=== PATIENT | female | born 1960 | race Caucasian/White ===

== ENCOUNTER 2023-09-30 04:57 | Inpatient (IN) | payer OTHER, SELFPAY ==
[2023-09-27 07:38] VITALS: BMI 28.6
[2023-09-27 08:17] LABS: % Basophils 0.5 % (0-2); % Eosinophils 1.9 % (0-6); % Immature Granulocytes 0.3 % (0-0.5); % Lymphocytes 14.1 % (20.5-51.1); % Monocytes 4.6 % (1.7-9.3); % Neutrophils 78.6 % (42.2-75.2); Absolute Eosinophils 0.2 10^3/uL (0-0.7); Absolute Lymphocytes 1.1 10^3/uL (1.2-3.4); Absolute Monocytes 0.4 10^3/uL (0.1-0.6); Absolute Neutrophils 6.3 10^3/uL (1.4-6.5); Hematocrit 40.9 % (37.0-47.0); Hemoglobin 13.4 g/dL (12.0-16.0); Mean Corp Hgb Conc. 32.8 g/dL (33.0-37.0); Mean Corpuscular Hgb 29.3 pg (27.0-31.0); Mean Corpuscular Volume 89.5 fL (81.0-99.0); Mean Platelet Volume 10.3 fL (7.4-10.4); Nucleated Red Blood Cells % 0 %; Platelet Count 292 10^3/uL (130-400); Red Blood Cell Count 4.57 10^6/uL (4.20-5.40); Red Cell Dist. Width 14.4 % (11.5-14.5)
[2023-09-27 08:25] LABS: APTT 27.4 Sec (23.4-35.0); INR 1.05; PT 13.5 Sec (11.4-14.6)
[2023-09-27 08:42] LABS: Urine Albumin Negative (Neg - Trace); Urine Bilirubin Negative (Negative); Urine Character Clear (Clear); Urine Color Yellow; Urine Glucose Negative (Negative); Urine Ketone Negative (Negative); Urine Leukocyte Negative (Negative); Urine Nitrite Negative (Negative); Urine Occult Blood Negative (Negative); Urine Urobilinogen Negative (Neg - 1+)
[2023-09-27 09:06] LABS: ALT (SGPT) 18 U/L (0-35); AST (SGOT) 24 U/L (14-36); Albumin 4.2 g/dl (3.5-5.0); Alkaline Phosphatase 56 U/L (38-126); Blood Urea Nitrogen 16 mg/dl (7-17); Calcium 9.9 mg/dl (8.4-10.2); Carbon Dioxide 25 mmol/L (22-30); Chloride 105 mmol/L (98-107); Direct Bilirubin 0.3 mg/dl (0.0-0.4); Estimated Creatinine Clearance 70 ml/min; Glucose 134 mg/dl (70-99); Potassium 4.5 mmol/L (3.5-5.1); Sodium 142 mmol/L (135-145); Total Bilirubin 0.6 mg/dl (0.2-1.3); eGFR > 60.00
[2023-09-27 09:22] LABS: Glycohemoglobin (HgbA1c) 8.8 % (4.0-5.6)
--- NOTE | 2023-09-27 09:43 | CM ---
Chart reviewed. Met with the patient in PAT. Reviewed preoperative and postoperative instructions with restrictions. Gave patient 2 soaps along with showering instructions. Patient is agreeable to a home visit by CT Transitional Care RN.
Patient is independent of ADLS, lives with her in a [facility], 1st floor set up, 2 BETY, 0 DME. Plan is for the patient to return home with CT Transitional Care RN
[2023-09-30] VITALS (17 sets, daily range): BP systolic 91–115; BP diastolic 54–76; PULSE 2–88; BMI 28.4
[2023-09-30] MEDS: BACTROBAN 2% OINTMENT 1 APPLIC NASAL ×2 (05:20→19:56)
[2023-09-30] MEDS: LOPRESSOR 25 MG PO (05:20)
[2023-09-30] MEDS: PROTONIX 40 MG PO (05:20)
[2023-09-30] MEDS: MAGNESIUM OXIDE 500 MG PO (05:21)
--- NOTE | 2023-09-30 05:41 | PTCARENOTE ---
Pt arrived as same day admission; x2 home showers confirmed; pt prepped and clipped; [facility] wipes provide with new gown and sheets; all admission questions answered; home medications reviewed; preop checklist review, all jewelry removed ; preop
medications taken; ABO drawn and sent; awaiting OR.
--- NOTE | 2023-09-30 08:15 | W.CVOR.SURPR ---
CVOR Surgeon Immed Pre Op
-
I have examined this patient prior to performance of the scheduled procedure.
The patient's condition is unchanged from the time of the dictated/written History and
Physical and the patient is able to undergo the scheduled procedure.
HEMPHILL-LAD
[2023-09-30 08:29] LABS: Urine Albumin Negative (Neg - Trace); Urine Bilirubin Negative (Negative); Urine Character Clear (Clear); Urine Color Yellow; Urine Glucose Negative (Negative); Urine Ketone Negative (Negative); Urine Leukocyte Negative (Negative); Urine Nitrite Negative (Negative); Urine Occult Blood Negative (Negative); Urine Specific Gravity 1.015 (<1.030); Urine Urobilinogen Negative (Neg - 1+)
[2023-09-30 08:30] LABS: ACT+ - POC 104 Seconds (82-134)
[2023-09-30 08:35] LABS: B.E. - POC -2.9 mmol/L; Glucose - POC 135 mg/dl (65-99); HCO3 - POC 22 mmol/L (21-29); Hematocrit - POC 35 % PCV (37-47); Hemodilution- POC No; Hemoglobin Calculated - POC 11.9; Ionized Calcium - POC 1.19 mmol/L (1.12-1.27); O2 Saturation %Calculated-POC 99.6 5 (92-96); PCO2 - POC 39 mmHg (35-45); PO2 - POC 187 mmHg (80-100); Sodium - POC 144 mmol/L (135-145); pH - POC 7.37 (7.35-7.45)
--- NOTE | 2023-09-30 09:20 | PN.DE.MGMTRT ---
Insulin Management
- -
09/30/2023: Diabetes Management Consult:
63 year old female admitted for elective cardiac surgery. Pt recently had an acute STEMI, underwent PCI to the RCA, was found to have residual CAD involving the proximal LAD and underwent a nuclear study that showed anterior or lateral and apical
hypokinesis and evidence of ischemia during stress.
PMH includes: HTN, HLD, CAD involving the proximal LAD, Ischemic cardiomyopathy with LVEF 40 to 45% along with regional wall motion abnormality in the anterior apical region on nuclear stress test, Hx of CVA, H/o Right breast cancer, s/p partial
mastectomy with radiation, Prior small bowel surgery and T2DM.
A1C 8.8%, Cr 0.6, eGFR>60. Was taking Levemir 34 units daily, glipizide 2.5mg daily and Tradjenta 5mg daily.
Patient is not available for interview at this time. She is off the floor to the OR for procedure. Was NPO since MN. No glucose obtained this morning.
Pt will be managed on glycemic protocol x48hrs post cardiac surgery.
At time of transition off insulin drip, resume pt's OP regimen: Levemir 34 units daily, Glipizide at increased dose of 5mg BID and Januvia 100mg daily (Tradjenta NF here) in addition to Jardiance or Farxiga 10 mg daily whichever one is covered by
insurance.
Will follow up on Tuesday.
Diabetes History
- -
Type of Diabetes: 2 requiring insulin
Pre-Admission Diabetes Regimen
Lab Results
Hemoglobin A1c 8.8 % (4.0-5.6) H 09/27/23 07:49
Insulin Pump Settings
IP Diabetes Regimen
Patient Education
[2023-09-30 10:19] LABS: ACT+ - POC 574 Seconds (82-134)
--- NOTE | 2023-09-30 11:13 | CM ---
Chart reviewed. Patient is in the OR today. Patient is independent of ADLS, lives with her in a 1.5 [facility] 1st floor set up, 2 BETY, 0 DME. Plan is for the patient to return home with CT Transitional RN. CMt to follow
[2023-09-30 11:25] LABS: ACT+ - POC 93 Seconds (82-134)
[2023-09-30 11:29] LABS: Glucose - POC 178 mg/dl (65-99); HCO3 - POC 25 mmol/L (21-29); Hematocrit - POC 34 % PCV (37-47); Hemodilution- POC Yes; Hemoglobin Calculated - POC 11.5; Ionized Calcium - POC 1.06 mmol/L (1.12-1.27); O2 Saturation %Calculated-POC 99.9 5 (92-96); PCO2 - POC 41 mmHg (35-45); PO2 - POC 270 mmHg (80-100); Potassium - POC 3.7 mmol/L (3.6-5.0); Sodium - POC 145 mmol/L (135-145)
--- NOTE | 2023-09-30 11:51 | W.PN.CT.SURG ---
CT Surgery Operative Note
-
CARDIAC SURGERY OPERATIVE REPORT
Preoperative Diagnosis: Residual coronary Artery Disease with proximal LAD involvement and status post STEMI with PCI to the RCA
Postoperative Diagnosis: Same
Procedure(s) Performed:
1. Robotic assisted MIDCAB (single-vessel bypass HEMPHILL in situ to LAD)
2. Robotic assisted harvest of internal mammary artery with anterolateral mini thoracotomy for CABG
3. Transesophageal echocardiography
4. Transonic Flowprobe assessment of HEMPHILL graft
5. Intercostal nerve block, interspaces 3, 4, 5, 6 with 5 cc of bupivacaine mixture in each space
Date of Surgery: 09/30/23
Comorbidities:
1. Coronary artery disease involving the proximal LAD
2. Recent acute STEMI status post PCI with multiple stents to the RCA
3. Ischemic cardiomyopathy with LVEF 40 to 45% along with regional wall motion abnormality in the anterior apical region on nuclear stress test
4. Hypertension
5. Hyperlipidemia
6. Previous stroke, unknown etiology
7. Diabetes type 2
8. Right breast cancer, status post partial mastectomy with radiation
9. Prior small bowel surgery
Attending Surgeon: Edin Card MD, MS
Assistants: Erica Srivastava PA-C (present and necessary to dental hygiene administrative assistant, exchanging robotic instruments, retraction, suction, exposure, suture management, and wound closure under my direction)
Anesthesiology: Danial Murillo MD and Veronica Raya CRNA
Scrub and Circulating RNs: Stacy Valerio RN, Sy Lackey and Milan Quinones RN
Industrial Truck Mechanic: Abdirizak Moon CCP
Anesthesia: GETA
EBL: per perfusion records
Products: None
Indication(s) for Procedures: This is a 63-year-old female who recently had an acute STEMI and underwent PCI intervention to the RCA. She was found to have residual coronary artery disease involving the proximal LAD and underwent a nuclear study
demonstrating anterior or lateral and apical hypokinesis and evidence of ischemia during stress. She is status post greater than 30 days from her stenting procedure. The STS risk was discussed with the patient in the office and the shared decision
making was to pursue a single-vessel bypass using his mammary artery to his LAD via a mini invasive approach.
Conduit(s) Quality/Internal Diameter:
HEMPHILL -excellent, uniform in size, good quality, flow probe analysis, mean flow of 20 cc/min, PI of 2.6-2.9
Target(s) Quality/Internal Diameter:
LAD -good quality, could not accommodate a 2.0 mm shunt. Was able to easily accommodate a 1.5 mm shunt and was a tortuous vessel overall
Findings: Her left ventricular ejection fraction preoperatively was 50 to 55%, following surgery her EF remained the same with no new regional wall motion abnormalities. The HEMPHILL was harvested in a skeletonized fashion. The mammary graft was
verified with flow probe to have excellent signals. There was a mean flow of approximately 20 cc a minute and a pulsatility index of less than 3.0
Description of Procedure: The patient was taken to the operating room. Their identity and procedure to be performed were verified and they were positioned supine on the operating table. Induction via general anesthesia with endotracheal intubation
was performed and central venous access and arterial monitoring were inserted. A preoperative transesophageal echocardiogram was performed to assess cardiac function and valvular function. The patient was then prepped and draped from chin to feet in
a sterile fashion and positioned with left side bumped up and left arm down. A preoperative time-out was performed with all members of the team present. A Veress needle was used to enter the chest after stopping ventilation with the left lung
verified by anesthesia. We started with slow pressure insufflation which they tolerated. An 8 mm port was inserted in the fourth intercostal space laterally and a camera was inserted verifying no intrathoracic iatrogenic injuries. 2 additional
ports(8 mm and 8mm) were placed along the midaxillary line on either side of the camera port. Single 12 mm air seal port was used for the internet marketing assistant to pass instruments and sutures. The robotic platform was then docked and targeted towards the
mammary. An intercostal nerve block was then performed here along the anterior chest wall. The mammary was harvested in a skeletonized fashion. A posterior pericardiotomy was created to facilitate drainage. Once sufficient length was obtained, an
anterior pericardiotomy was created to identify the distal target. This was marked with a marker robotically. The cardiac stabilizer arm was then inserted through one of the robotic ports under direct vision and aimed up towards the anterior chest
wall. Full heparinization was given (a total of 30,000 units). 3 Hem-o-gonzales clips were used to occlude and divide the mammary distally at its bifurcation, and a single 5-0 prolene suture was used to secure the mammary to the pericardium overlying
the LAD target. The robot platform was then undocked and the patient and a left anterior thoracotomy was created over the target vessel avoiding her breast tissue and tunneling upwards towards the fourth intercostal space. Upon entering the
thoracic cavity the mammary and LAD were visible. A soft tissue and thoracotomy retractor was placed to facilitate exposure and a pericardial well was created. The ACT was confirmed to be over 400.
The cardiac suction stabilizer was used to isolate the LAD target. The distal end of the mammary was prepped and beveled to size. We verified orientation and length of the CHEPE and found brisk flow. A coronary arteriotomy was created and enlarged
with coronary dale scissors. A 1.5mm shunt was inserted to facilitate exposure and continued tanana coronary perfusion. An fpei-as-kwdd anastomosis was created with a 7-0 prolene leaving the Hem-o-gonzales clip at the end of the left internal mammary
artery. The bulldog on the mammary was removed which demonstrated excellent graft flow. The shunt was then remove and demonstrated excellent tanana flow. Appropriate hemostasis was confirmed. The mammary graft was inspected and was free from
kinking or twisting and flowprobe evaluation demonstrated good flow and PI. A test dose of protamine was administered and the patient was monitored for any adverse reaction before resuming protamine. A 19F raven drain into the pericardium and
through the posterior pericardiotomy into the left chest. Fascia was approximated with #1 vicryl suture. Local analgesia was administered to the surgical sites. The subcutaneous, dermis and epidermis were closed in layers in a running fashion. The
skin wound was cleansed and dressed.
All instrument, sponge, and needle counts were confirmed to be correct x 2 at the end of the operation. The patient was transferred to the cardiac intensive care unit extubated in critical but stable condition.
I, Dr. Edin Card, was present, scrubbed for, and performed all critical elements of this procedure.
Edin Card MD, MS
Cardiothoracic Surgeon
[facility]
This operative dictation was created using the [email or web address] dictation system. Please excuse any grammatical, typographical, or 'sound alike' errors
[2023-09-30 12:32] LABS: Glucose - Point of Care 184 mg/dl (70-99)
--- NOTE | 2023-09-30 12:39 | W.PN.UPDATE ---
Update Note
Progress Note Update
63-year-old female who recently had an acute STEMI and underwent PCI intervention to the RCA. She was found to have residual coronary artery disease involving the proximal LAD and underwent a nuclear study demonstrating anterior or lateral and
apical hypokinesis and evidence of ischemia during stress. She is status post greater than 30 days from her stenting procedure. The STS risk was discussed with the patient in the office and the shared decision making was to pursue a single-vessel
bypass using his mammary artery to his LAD via a mini invasive approach.
Crystalloid:� 2000
U.O.:� 400
Blood:� none
Wires:� none
Inotropes:� None
Pressors:� none
Sedatives:� none
�
NEURO: Pupils +2mm B/L
RESP: Bipap 14/5, RR12; Lungs clear B/L.Mediastinal/pleural (47cc on arrival) chest tubes to -20cm suction. Sanguineous drainage
CV: RRR +S1, S2, no S3, no�rub, no murmur. Dermabond to left chest; [facility]
ABD: round, soft, no BS
EXT: no edema, +2/4 DP pulses B/L, no femoral bruit left radial arterial line
: Astudillo with clear yellow urine
�
A/P: POD #0 s/p Robotic assisted MIDCAB (single-vessel bypass HEMPHILL in situ to LAD)
ISAÍAS: EF�50-55% with no new regional wall motion abnormalities
- will start ASA once awake to tolerate PO
- Maintain MAPs >65; currently on NTG
- cont pain protocol
- monitor CT and urine Output
- f/u CXR; t/c lasix
- EKG sent to cards
- Cards consulted
�
# acute surgical blood loss anemia-expected
- trend CBC
�
# T2DM (A1C 8.8)
- insulin infusion x 48h
- resume orals meds after
- DM management SET UP MOLD TECHNICIAN consulted
�
# Hyperlipidemia
- resume�statin once tolerating PO
--- NOTE | 2023-09-30 12:40 | PTCARENOTE ---
Assumed care of patient from CVOR. SR on monitor , RT IJ cordis with [place] and CVP monitoring, Lt radial A line transduced. Lines leveled, recalibrated and flushed. Placed on BIPAP upon arrival by NUCLEAR TEST TECHNICIAN/RT. Pulse ox 98% 10 L 15/4. Chest tubes x
1 to -20 cm suction. No air leak or crepitus noted. Abdomen soft , hypoactive bowel sounds. Astudillo draining straw urine. DP pulses and radial pulses palpable. Surgical sites c,d,i. Insulin and nitro infusing on handoff, see flow sheet for
totals / titration.
--- NOTE | 2023-09-30 12:41 | CON.INTV ---
Consultation
Consultation Request
Date/Time Consultation Requested: 09-30-23
Date/Time Consultation Performed: 09-30-23
Requesting Provider: Dr Card
Performing Provider: Dr Moyer
Reason for Consultation: s/p CABG MV
Medical History
-
Chief Complaint: s/p CABG MC
History of Present Illness:
Mrs Shannon Palma is a 63/W adm for scheduled CABG by Dr Card. Seen by Dr Card at office for residual proximal LAD disease. Prepared for surgery.
Received CABGx1. Seen at CVICU, on BPAP (extubated at OR), tolerating BPAP well
Sedated, able to weakly open eyes
Past Medical History
Past Medical History: Other (see A&P for PMH/PSH)
Social History
Tobacco: Former Smoker
Alcohol: None
Drug: None
Personal:
Living: With Family
Employment: Employed
Family History
Family History: CAD (M: stents. Brother at 65 with AMI) and Diabetes (son)
Allergies / Home Medications
Allergies
Allergy/AdvReac Type Severity Reaction Status Date / Time
oxycodone Allergy 'wacked me Verified 09/26/23 09:05
out, had
to go to
ER'
Penicillins Allergy reaction Verified 09/26/23 09:05
as child
Sulfa (Sulfonamide Allergy delirious Verified 09/26/23 09:05
Antibiotics)
Home Medications
�Medication �Instructions �Recorded �Confirmed �Last Taken �Type
Curcumin Turmeric 1 tab PO DAILY 09/26/23 09/30/23 09/15/23 08:00 History
ascorbic acid (vitamin C) 500 mg 500 mg PO DAILY 09/26/23 09/30/23 09/15/23 08:00 History
tablet (Vitamin C)
aspirin 81 mg capsule 81 mg PO DAILY 09/26/23 09/30/23 09/29/23 08:00 History
atorvastatin 40 mg tablet 40 mg PO DAILY 09/26/23 09/30/23 09/29/23 08:00 History
cholecalciferol (vitamin D3) 25 25 mcg PO DAILY 09/26/23 09/30/23 09/15/23 08:00 History
mcg (1,000 unit) tablet (Vitamin
D3)
glipizide 2.5 mg tablet 2.5 mg PO DAILY 09/26/23 09/30/23 09/29/23 08:00 History
insulin detemir U-100 100 unit/mL 34 unit SC DAILY 09/26/23 09/30/23 09/29/23 08:00 History
(3 mL) subcutaneous pen (Levemir
FlexPen)
linagliptin 5 mg tablet (Tradjenta) 5 mg PO DAILY 09/26/23 09/30/23 09/29/23 08:00 History
losartan 50 mg tablet 50 mg PO DAILY 09/26/23 09/30/23 09/27/23 08:00 History
metoprolol tartrate 50 mg tablet 50 mg PO BID 09/26/23 09/30/23 09/29/23 08:00 History
multivitamin 1 tab PO DAILY 09/26/23 09/30/23 09/15/23 08:00 History
ticagrelor 90 mg tablet (Brilinta) 90 mg PO BID 09/26/23 09/30/23 09/23/23 08:00 History
Review of Systems
-
Unable to Obtain full review of systems at this time due to: Patient Intubation
Vitals / Labs / Diagnostic Testing
Vital Signs
Temp Pulse Resp BP Pulse Ox
96.1 F L 88 15 104/64 97
09/30/23 12:33 09/30/23 12:33 09/30/23 12:33 09/30/23 12:33 09/30/23 12:33
Microbiology
09/27/23 07:49 Nose MRSA Screen - Final
No Methicillin Resistant Staphylococcus aureus isolated.
Diagnostic Testing:
Physical Exam
-
HEENT: Normocephalic and Other (BPAP FFM)
Cardiovascular: Regular Rhythm and Peripheral Edema (n)
Respiratory: Rales (trace) and Non-Labored Respirations
GI: Soft and Non Distended
Neurology: Other (sedated)
Skin: Warm
General: Respiratory Distress (n)
Assessment
-
Assessment:
Mrs Shannon Palma is a 63/W adm for scheduled CABG by Dr Card. Seen by Dr Card at office for residual proximal LAD disease. Prepared for surgery. Received CABGx1. Seen at CVICU
Impression:
S/p single-vessel CABG
Conditions IMAGING SPECIALIST:
CAD, s/p AMI, RCA stent July 2023 at [facility]
CVA 2019, R sided numbness but no weakness
T2DM
HTN
HLD
R breast cancer s/p lumpectomy and XRT
Umbilical hernia
Former smoker
Plan:
Extubated at OR
Currently on BPAP 14/5 cwp with O2 at 15L
BPAP and FiO2 will be weaned
Postop CXR: underpenetrated, pulm vasc congestion, interim extubation, RIJ cordis
Agree with diuretic dose as d/w CTSx SANDBLASTING SUPERVISOR
Pressors/antihypertensive/inotropes/diuretics will be provided as needed
Monitor chest tube output
Monitor hemoglobin
Monitor platelet count and coags
Transfuse blood product if needed
CT surgery following chest tube
Monitor blood sugar
Insulin drip per protocol
Aspiration precautions
Early nutrition
Early mobilization
Critical care time: 35 min
D/w CTSx RN
[2023-09-30 12:45] LABS: Hematocrit 35.6 % (37.0-47.0); Hemoglobin 11.4 g/dL (12.0-16.0); Mixed Venous O2 Saturation 84.5 %; Platelet Count 261 10^3/uL (130-400)
[2023-09-30 12:46] LABS: B.E. -1.8 mmol/L; HCO3 24.3 mmol/L (21-28); Ionized Calcium 1.12 mMOL/L (1.15-1.33); O2 Saturation % 98.6 % (94-98); PCO2 46 mmHg (32-35); PO2 109 mmHg (83-108); Potassium 3.9 mMOL/L (3.5-5.1); Sodium 139 mMOL/L (136-145); pH 7.33 (7.35-7.45)
[2023-09-30 12:53] LABS: APTT 27.3 Sec (23.4-35.0); INR 1.25; PT 15.5 Sec (11.4-14.6)
[2023-09-30] MEDS: KCL 50 IV ×2 (12:56→16:19)
[2023-09-30] MEDS: CALCIUM CHLORIDE 10% SYRINGE 50 ML IV (12:56)
[2023-09-30] MEDS: NSS 500 IV (12:56)
[2023-09-30] MEDS: CALCIUM CHLORIDE 10% SYRINGE 50 MG IV (12:56)
[2023-09-30 12:57] LABS: Blood Urea Nitrogen 13 mg/dl (7-17); Estimated Creatinine Clearance 93 ml/min; Glucose 179 mg/dl (70-99); Magnesium 1.8 mg/dl (1.6-2.3)
[2023-09-30] MEDS: NOVOLOG FLEXPEN SC ×2 (12:57→16:24)
[2023-09-30] MEDS: LASIX 20 MG IV (12:57)
[2023-09-30] MEDS: ANCEF 10 IV (12:57)
[2023-09-30] MEDS: ANCEF IV (12:57)
--- NOTE | 2023-09-30 13:16 | W.PN.CD ---
Addendum entered and electronically signed by Tommy Dye MD 10/01/23 08:14:
I saw and examined the patient.
The DIVISION CHAIR's note was reviewed and I agree with the note.
Comment: Late entry seen and examined September 29.
Cont routine post op care
Original Note:
Today's Communication / Plan
-
routine post op care.
Impression / Plan
-
Mrs. Palma is a 63 yo female with CAD s/p STEMI with PCI RCA 07/2023, residual LAD disease, HTN, HLD, DM, CVA 2018 and prior breast cancer, who presents for MIDCAB by Dr. Card today. Her hand edger is Dr. Mckeon.
CAD - residual proximal LAD s/p STEMI 07/2023 with PCI to RCA.
- s/p robotic assisted MIDCAB HEMPHILL to LAD by Dr. Card today.
- awake/alert on BiPAP post op.
- left chest tube draining.
- NTG drip with stable BP.
HTN - stable BP on NTG drip now.
- monitor.
HLD - Lipitor 40mg qpm.
DM - insulin dependent.
- DM DIVISION CHAIR following.
CVA - 2018.
- stable.
Breast cancer - prior, right sided.
- s/p lumpectomy and XRT.
Physical Exam
Vital Signs/Labs
Vital Signs
Temp Pulse Resp BP Pulse Ox
96.2 F L 80 11 94/56 97
09/30/23 13:05 09/30/23 13:05 09/30/23 13:05 09/30/23 13:05 09/30/23 13:07
09/29/23 09/30/23 10/01/23
06:59 06:59 06:59
Actual Weight 72.6 kg
09/30/23 12:19
PT 15.5 Sec (11.4-14.6) H 09/30/23 12:19
INR 1.25 09/30/23 12:19
APTT 27.3 Sec (23.4-35.0) 09/30/23 12:19
Magnesium 1.8 mg/dl (1.6-2.3) 09/30/23 12:19
Physical Exam
Constitutional: No acute distress
EENT: Anicteric and Moist mucous membranes
Cardiovascular: Rhythm & rate is regular and Pedal edema is absent
Respiratory: Respiratory effort normal
GI: Soft and Non tender
Neuro/Psych: Other (sleepy, arouses to name on Bipap post op)
Other: Skin (warm, dry)
Data Reviewed
-
Date of Service: September 30, 2023
Medical Decision Making: Reviewed Test Results
EKG: Tracing Personally Visualized and interpreted
Labs: Labs Reviewed by me
Old Records: Reviewed
[2023-09-30] MEDS: DILAUDID 0.5 MG IV (13:30)
[2023-09-30 13:35] LABS: Glucose - Point of Care 209 mg/dl (70-99)
[2023-09-30] MEDS: MAGNESIUM SULFATE 50 IV (14:08)
--- NOTE | 2023-09-30 14:09 | PTCARENOTE ---
Pt waking up more frequently for longer periods of time. Repeat ABG obtained and sent . Will assess once resulted .
[2023-09-30 14:10] LABS: B.E. -3.8 mmol/L; HCO3 23.1 mmol/L (21-28); O2 Saturation % 98.8 % (94-98); PCO2 48 mmHg (32-35); PO2 158 mmHg (83-108); pH 7.29 (7.35-7.45)
[2023-09-30] MEDS: NITROGLYCERIN PREMIX 250 IV (14:10)
[2023-09-30] MEDS: CARDENE 200 IV ×3 (14:23→19:55)
[2023-09-30 14:52] LABS: Glucose - Point of Care 206 mg/dl (70-99)
--- NOTE | 2023-09-30 14:52 | PTCARENOTE ---
Respiratory therapists called for BIPAP changes
[2023-09-30] MEDS: TORADOL 15 MG IV ×2 (15:17→22:05)
[2023-09-30 15:25] LABS: B.E. -4.4 mmol/L; HCO3 22.6 mmol/L (21-28); O2 Saturation % 98.5 % (94-98); PCO2 48 mmHg (32-35); PO2 123 mmHg (83-108); pH 7.28 (7.35-7.45)
--- NOTE | 2023-09-30 15:25 | PTCARENOTE ---
Bicarb administered per order, Pt awaking with stimulation, attempting to remove BIPAP as 'she cannot breath' Pt removed zandra hugger blanket. C/o pain in chest. Toradol recently administered. Will recheck ABG as per order and follow.
[2023-09-30] MEDS: SODIUM BICARBONATE 50 MEQ IV (15:30)
[2023-09-30] MEDS: PACERONE PO (15:36)
[2023-09-30] MEDS: NEURONTIN PO (15:36)
[2023-09-30 16:01] LABS: Glucose - Point of Care 184 mg/dl (70-99)
[2023-09-30 16:11] LABS: Hematocrit 37.9 % (37.0-47.0); Hemoglobin 12.2 g/dL (12.0-16.0); Platelet Count 260 10^3/uL (130-400)
[2023-09-30 16:12] LABS: B.E. 0.8 mmol/L; HCO3 26.6 mmol/L (21-28); Ionized Calcium 1.26 mMOL/L (1.15-1.33); O2 Saturation % 98.3 % (94-98); PCO2 46 mmHg (32-35); PO2 122 mmHg (83-108); Potassium 3.1 mMOL/L (3.5-5.1); Sodium 141 mMOL/L (136-145); pH 7.37 (7.35-7.45)
[2023-09-30 17:16] LABS: Glucose - Point of Care 147 mg/dl (70-99)
[2023-09-30 17:17] LABS: B.E. -1.3 mmol/L; HCO3 23.7 mmol/L (21-28); Ionized Calcium 1.25 mMOL/L (1.15-1.33); O2 Saturation % 98.4 % (94-98); PCO2 40 mmHg (32-35); PO2 122 mmHg (83-108); Potassium 3.8 mMOL/L (3.5-5.1); Sodium 141 mMOL/L (136-145); pH 7.38 (7.35-7.45)
--- NOTE | 2023-09-30 17:18 | PTCARENOTE ---
Pt awoke spontaneously. Thrashing in bed, grabbing at mask. RN attempting to draw ABG at time. Pt became nauseated , gagging, BIPAP removed, oxygen 6 L applied, zofran administered. Will follow ABG. Mask left off at this time.
[2023-09-30] MEDS: ZOFRAN 4 MG IV (17:30)
[2023-09-30] MEDS: LOW STRENGTH ASPIRIN 81 MG PO (17:36)
[2023-09-30] MEDS: ANCEF 5 IV (17:36)
[2023-09-30 18:11] LABS: Glucose - Point of Care 122 mg/dl (70-99)
[2023-09-30] MEDS: OFIRMEV 100 IV (18:20)
--- NOTE | 2023-09-30 18:21 | PTCARENOTE ---
Pt given sip of water with PO Aspirin. Initially tolerated, then approx 45 minutes after, pt attempting to readjust in bed and became nauseated and vomited approx 50 ml sputum consistent emesis. Pt c/o 'worst pain yet' . Requesting IV Drugs.
Discussed with CT TELEGRAPH INSTALLER. IV ofirmev ordered and administered. Will monitor.
[2023-09-30] MEDS: REGLAN 10 MG IV (18:48)
[2023-09-30 19:16] LABS: Glucose - Point of Care 122 mg/dl (70-99)
[2023-09-30] MEDS: LOPRESSOR 12.5 MG PO (19:56)
[2023-09-30] MEDS: SENOKOT-S PO (19:57)
[2023-09-30] MEDS: ULTRAM 25 MG PO (20:08)
[2023-09-30 20:32] LABS: Glucose - Point of Care 102 mg/dl (70-99)
--- NOTE | 2023-09-30 20:45 | PTCARENOTE ---
Assumed care of pt from julia RN. Pt AAOx3. RICH. Following commands appropriately. Pt SR to sinus tach on the monitor. HR 90s-100s. BP 100s-120s/50s. Cardene infusing as ordered/per protocol. CVP 6-10. Palpable pulses. No edema. Pt on 4 L NC. POX
95-97%. Lung sounds diminished. Coughing and deep breathing encouraged. Left pleural CTx1 to -20 suction, no airleak/tidaling/crepitus at this time. Abdomen soft/nontender. Hypoactive BS. Astudillo catheter CDI and draining straw colored urine. Right IJ
cordis w/ slick CDI. Left a-line CDI. All lines leveled, zeroed, and flushed. All surgical sites stable. Pt c/o pain - see MAR. Glycemic protocol followed. See worklist for full nursing assessment, VS, and interventions. Call mckeon within reach of
pt.
[2023-09-30] MEDS: NEURONTIN 100 MG PO (22:05)
[2023-09-30] MEDS: PACERONE 200 MG PO (22:05)
[2023-09-30] MEDS: TYLENOL PO (22:06)
[2023-09-30 22:12] LABS: Glucose - Point of Care 102 mg/dl (70-99)
[2023-09-30 23:11] LABS: Blood Urea Nitrogen 17 mg/dl (7-17); Carbon Dioxide 26 mmol/L (22-30); Chloride 108 mmol/L (98-107); Estimated Creatinine Clearance 80 ml/min; Glucose 113 mg/dl (70-99); Sodium 139 mmol/L (135-145); eGFR > 60.00
[2023-10-01] VITALS (26 sets, daily range): BP systolic 96–131; BP diastolic 35–94; PULSE 77; O2SAT 92–93; BMI 29.4
[2023-10-01 00:05] LABS: Glucose - Point of Care 100 mg/dl (70-99)
--- NOTE | 2023-10-01 00:09 | PTCARENOTE ---
Pt reassessed. SR on the monitor. HR 80s. BP stable - 100s-110's/50s. Cardene infusion titrated off per protocol. CVP 6-9. Pt maintained on 4 L NC. POX 94-96%. Ct assessment unchanged from previous w/ minimal output. Glycemic protocol followed. All
surgical sites stable. All lines leveled, zeroed, and flushed. See MAR for medication administration. Call mckeon within reach.
[2023-10-01 02:07] LABS: Glucose - Point of Care 87 mg/dl (70-99)
[2023-10-01] MEDS: ANCEF 5 IV ×2 (02:07→10:10)
[2023-10-01] MEDS: NOVOLIN R INSULIN INFUSION 100 IV (03:12)
[2023-10-01 03:31] LABS: Hematocrit 36.7 % (37.0-47.0); Hemoglobin 11.9 g/dL (12.0-16.0); Mean Corp Hgb Conc. 32.4 g/dL (33.0-37.0); Mean Corpuscular Hgb 29.8 pg (27.0-31.0); Mean Platelet Volume 10.4 fL (7.4-10.4); Platelet Count 235 10^3/uL (130-400); Red Blood Cell Count 3.99 10^6/uL (4.20-5.40); Red Cell Dist. Width 14.5 % (11.5-14.5); White Blood Cell Count 19.8 10^3/uL (4.8-10.8)
[2023-10-01 04:06] LABS: Blood Urea Nitrogen 16 mg/dl (7-17); Calcium 9.2 mg/dl (8.4-10.2); Carbon Dioxide 24 mmol/L (22-30); Chloride 107 mmol/L (98-107); Estimated Creatinine Clearance 80 ml/min; Glucose 129 mg/dl (70-99); Magnesium 2.4 mg/dl (1.6-2.3); Potassium 4.5 mmol/L (3.5-5.1); Sodium 133 mmol/L (135-145); eGFR > 60.00
[2023-10-01 04:12] LABS: Glucose - Point of Care 138 mg/dl (70-99)
--- NOTE | 2023-10-01 04:13 | PTCARENOTE ---
Pt reassessed. SR on monitor. HR 80s. BP 100-110's/50-60s. CVP 5-8. Pt remains on 4 L NC. POX 93-96%. CT assessment unchanged from original. Astudillo catheter CDI. Glycemic protocol followed. A;; surgical sites stable. labs drawn and sent. EKG obtained
- NSR. No c/o pain at this time. Call mckeon within reach.
--- NOTE | 2023-10-01 04:43 | W.PN.CT ---
Addendum entered and electronically signed by Joni Serna MD 10/01/23 08:03:
I saw and examined the patient.
The PA's note was reviewed and I agree with the note.
Comment:
POD#1 s/p ROBOCAB x 1
No issues. Doing well.
POD#1 plan
Potentially home tomorrow vs. Tuesday
Original Note:
Today's Communication / Plan
-
-pod #1
-no issues overnight
-drips: insulin
-CT output: L pleur and med 20/125 in 12/24 hrs
-deline
-continue insulin
-d/c Astudillo
-current meds (ASA, Plavix, Lipitor, Lopressor, Amio, Protonix). Of note, pt was on Brilinta preop after recent RCA stent 07/2023
-encourage IS, OOB
Assessment / Plan
-
- CAD involving prox LAD - s/p Robotic assisted MIDCAB (single-vessel bypass HEMPHILL in situ to LAD) on 09/30/[address] Card, pod #1
- Intraop ISAÍAS: LVEF preoperatively was 50 to 55%, following surgery her EF remained the same with no new regional wall motion abnormalities.
- Recent acute STEMI- status post PCI with multiple stents to the RCA
- Ischemic cardiomyopathy with LVEF 40 to 45% along with regional wall motion abnormality in the anterior apical region on nuclear stress test
- Hypertension
- Hyperlipidemia
- Previous stroke, unknown etiology
- Diabetes type 2 (HgA1c 8.8)
- Right breast cancer, status post partial mastectomy with radiation
- Prior small bowel surgery
- Acute postop blood loss anemia
- Acute postop atelectasis
- Acute postop hypovolemia with subsequent hypervolemia
Discussed patient care with: Nursing and Care Team
Subjective
Procedure
- s/p Robotic assisted MIDCAB (single-vessel bypass HEMPHILL in situ to LAD) on 09/30/[address] Card
-
Date of Service: October 01, 2023
Objective Data
-
PT 15.5 Sec (11.4-14.6) H 09/30/23 12:19
INR 1.25 09/30/23 12:19
APTT 27.3 Sec (23.4-35.0) 09/30/23 12:19
Vital Signs
Vital Signs
Temp Pulse Resp BP Pulse Ox
98.9 F 82 13 110/63 95
10/01/23 01:00 10/01/23 01:00 10/01/23 01:00 10/01/23 01:00 10/01/23 01:00
CT Intake/Output/Weight
09/30/23 09/30/23 10/01/23
06:59 18:59 06:59
Intake Total 444.5 / 803.9 359.4 / 803.9
Output Total 935 / 1240 305 / 1240
Balance -490.5 / -436.1 54.4 / -436.1
SaO2: 95
Physical Exam
-
General: Awake and AOx3
Cardiovascular: Regular rate & rhythm, No Murmurs and No Rub
Respiratory: Decreased Breath Sounds
Sternum: Stable
Incision: Clean, Dry and Intact
Extremities: No Edema (2+ DP b/l)
Data Reviewed
-
Lab Results: Results Reviewed
Medications: Active Meds Reviewed
Chest X-Ray: Report Reviewed and Image Reviewed
ECG: Report Reviewed and Image Reviewed
[2023-10-01] MEDS: TYLENOL 1000 MG PO ×3 (05:25→22:09)
[2023-10-01 06:11] LABS: Glucose - Point of Care 113 mg/dl (70-99)
--- NOTE | 2023-10-01 07:00 | W.PN.INTV ---
Today's Communication / Plan
Recommendations
IS
Reconsult prn
Assessment
-
Assessment:
Mrs Shannon Palma is a 63/W adm for scheduled CABG by Dr Card. Seen by Dr Card at office for residual proximal LAD disease. Prepared for surgery. Received CABGx1. Seen at CVICU
Impression:
S/p single-vessel CABG
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
CAD, s/p AMI, RCA stent July 2023 at [facility]
CVA 2019, R sided numbness but no weakness
T2DM
HTN
HLD
R breast cancer s/p lumpectomy and XRT
Umbilical hernia
Former smoker
Plan:
Extubated at OR
Postop CXR: underpenetrated, pulm vasc congestion, interim extubation, RIJ cordis
Today's CXR with no infiltrates
Pressors/antihypertensive/inotropes/diuretics will be provided as needed
Monitor chest tube output
Monitor hemoglobin
Monitor platelet count and coags
Transfuse blood product if needed
CT surgery following chest tube
Monitor blood sugar
Insulin drip per protocol
Aspiration precautions
Early nutrition
Early mobilization
Reconsult prn
Subjective Dataa
Subjective Data
Date of Service:
Date of Service: October 01, 2023
Chief Complaint: Siderographist Follow Up
Subjective:
No major events reported overnight
Extubated per surgery
Doing well in the postoperative period
Review of Systems
General: Fever (n), Sweats (n), Chills (n) and Satisfactory Appetite
HEENT: Dysphagia (n)
Cardiopulmonary: Dyspnea (n) and Chest Pain (incisional)
GI: Abdominal Pain (n), Nausea (n) and Vomiting (n)
Neuro: Weakness (n)
Objective Data
Data Reviewed
Vital Signs / I&O / Oxygen:
Vital Signs
Temp Pulse Resp BP Pulse Ox
99.1 F 90 14 112/61 95
10/01/23 05:00 10/01/23 06:45 10/01/23 06:00 10/01/23 06:01 10/01/23 06:45
Intake and Output
09/30/23 10/01/23 10/02/23
06:59 06:59 06:59
Intake Total 911.9 / 911.9
Output Total 1460 / 1460
Balance -548.1 / -548.1
SaO2 95
Nasal Cannula flow liters per 4
minute
Physical Exam
General: Comfortable
HEENT: Normocephalic and Moist Mucous Membranes
Cardiovascular: Regular Rhythm and Peripheral Edema (n)
Respiratory: Clear, Stridor (n) and Chest Tube
GI: Soft, Non Distended and Non Tender
Neurology: Awake, AO x 3 and No Motor Deficits
Labs/Micro/Reports
Lab Data
10/01/23 03:11
10/01/23 03:11
Laboratory Results
09/30/23 09/30/23 09/30/23
12:19 13:57 15:10
PT 15.5 H
INR 1.25
APTT 27.3
pH 7.33 L 7.29 L 7.28 L
pCO2 46 H 48 H 48 H
pO2 109 H 158 H 123 H
HCO3 24.3 23.1 22.6
O2 Delivery Level
09/30/23 09/30/23 09/30/23
15:59 16:00 17:10
PT
INR
APTT
pH 7.37 Cancelled 7.38
pCO2 46 H Cancelled 40 H
pO2 122 H Cancelled 122 H
HCO3 26.6 Cancelled 23.7
O2 Delivery Level Cancelled
Microbiology
09/27/23 07:49 Nose MRSA Screen - Final
No Methicillin Resistant Staphylococcus aureus isolated.
[2023-10-01] MEDS: NOVOLOG FLEXPEN 4 UNITS SC ×2 (07:52→11:37)
[2023-10-01 07:57] LABS: Glucose - Point of Care 105 mg/dl (70-99)
--- NOTE | 2023-10-01 08:00 | PTCARENOTE ---
pt received from previous RN, oriented, OOB in chair. SR on the monitor, HR 70-80s. SBP 100s-110s. palpable pulse, trace/+1 b/l UE edema. pt on 4LNC, 97% POX. lungs diminished. IS encouraged, 1000ml. CT x1, no air leak or crepitus noted. pt abdomen
s/n, denies n/v. +BS, pt states +flatus. diet tolerated well. DTV post Astudillo removal. incisional sites c/d/i. RIJ cordis maintained. PIV. insulin gtt running per protocol. see worklist for VS, I&O, and assessment.
[2023-10-01] MEDS: MAGNESIUM OXIDE PO ×2 (08:03→19:41)
--- NOTE | 2023-10-01 08:08 | W.PN.CD ---
Today's Communication / Plan
-
OOB and walking
restarting medications
Overall doing well
Impression / Plan
-
Mrs. Palma is a 63 yo female with CAD s/p STEMI with PCI RCA 07/2023, residual LAD disease, HTN, HLD, DM, CVA 2018 and prior breast cancer, who presents for MIDCAB by Dr. Card today. Her manager freelance is Dr. Mckeon.
CAD - residual proximal LAD s/p STEMI 07/2023 with PCI to RCA.
- s/p robotic assisted MIDCAB HEMPHILL to LAD by Dr. Card today.
- sitting in chair
- ECG shows diffuse ST elevations likely 2/2 procedure and chest tubes, minimal chest pain overall, however some at site of chest tubes
- recent STEMI and stenting of RCA, cont aspirin, ticag at some point
HTN - stable BP restarting metoprolol
- monitor.
HLD - Lipitor 40mg qpm.
DM - insulin dependent.
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
CVA - 2019.
- stable.
Breast cancer - prior, right sided.
- s/p lumpectomy and XRT.
Physical Exam
Vital Signs/Labs
Vital Signs
Temp Pulse Resp BP Pulse Ox
97.9 F 93 18 106/77 97
10/01/23 08:00 10/01/23 08:00 10/01/23 08:00 10/01/23 08:00 10/01/23 08:00
09/30/23 10/01/23 10/02/23
06:59 06:59 06:59
Actual Weight 160 lb 0.889 oz 166 lb 0.129 oz
10/01/23 03:11
10/01/23 03:11
PT 15.5 Sec (11.4-14.6) H 09/30/23 12:19
INR 1.25 09/30/23 12:19
APTT 27.3 Sec (23.4-35.0) 09/30/23 12:19
Magnesium 2.4 mg/dl (1.6-2.3) H 10/01/23 03:11
Physical Exam
Constitutional: No acute distress
EENT: Anicteric
Cardiovascular: Rhythm & rate is regular
Respiratory: Respiratory effort normal and Lungs clear to auscul.
GI: Soft
Neuro/Psych: AO x 3
Data Reviewed
-
Date of Service: October 01, 2023
Medical Decision Making: Reviewed Test Results
EKG: Tracing Personally Visualized and interpreted (sr ST elevations diffusely )
Labs: Labs Reviewed by me
[2023-10-01] MEDS: LOW STRENGTH ASPIRIN 81 MG PO (08:40)
[2023-10-01] MEDS: PLAVIX 75 MG PO (08:40)
[2023-10-01] MEDS: PROTONIX 40 MG PO (08:40)
[2023-10-01] MEDS: LOPRESSOR 12.5 MG PO (08:40)
[2023-10-01] MEDS: VITAMIN C 500 MG PO (08:41)
[2023-10-01] MEDS: THERAGRAN 1 TABLET PO (08:41)
[2023-10-01] MEDS: SENOKOT-S 1 TABLET PO ×2 (08:41→19:40)
[2023-10-01] MEDS: VITAMIN D3 (cholecalciferol) 25 MCG PO (08:41)
[2023-10-01] MEDS: NEURONTIN 100 MG PO ×3 (08:41→22:09)
[2023-10-01] MEDS: LIPITOR 40 MG PO (08:42)
[2023-10-01] MEDS: PACERONE 200 MG PO ×3 (08:42→22:09)
[2023-10-01] MEDS: ULTRAM 25 MG PO ×2 (08:42→15:01)
[2023-10-01] MEDS: LIDOCAINE 4% PATCH 1 PATCH TOPICAL (08:43)
[2023-10-01] MEDS: LASIX 40 MG IV (08:43)
[2023-10-01] MEDS: BACTROBAN 2% OINTMENT 1 APPLIC NASAL ×2 (08:44→19:41)
--- NOTE | 2023-10-01 08:52 | W.PN.ANS.POP ---
Anesthesia Post Operative
- Anesthesia Post Op Note
Vital Signs Stable-See Nursing Note: Yes
Airway Patent: Yes
Adequate Pain Control: Yes
Change in Mental Status: No
Current Postoperative Nausea & Vomiting: No
Anesthesia Complications: No
General Anesthetic Recall: No
Unplanned Admission: No
Post Op Hydration Adequate: Yes
[2023-10-01] MEDS: NSS IV (10:03)
[2023-10-01 10:10] LABS: Glucose - Point of Care 100 mg/dl (70-99)
--- NOTE | 2023-10-01 12:00 | PTCARENOTE ---
Addendum entered by Adeola Fisher RN 10/01/23 12:59:
RIJ cordis occluded, unable to flush. PHYSICAL THERAPY COORDINATOR aware, RIJ cordis dc'd as ordered, dressing c/d/i.
Original Note:
pt VSS, no changes in assessment. 91-94% on RA sitting up in chair. IS encouraged. pt ambulates to bathroom w/ stand by assist, voids. pt ambulated in hallway and completed stairs w/ CR. pt placed to bed to rest per request.
[2023-10-01 12:07] LABS: Glucose - Point of Care 168 mg/dl (70-99)
[2023-10-01] MEDS: FLEXERIL 5 MG PO (12:47)
[2023-10-01] MEDS: FERRLECIT 110 MG IV (14:04)
[2023-10-01 14:11] LABS: Glucose - Point of Care 212 mg/dl (70-99)
[2023-10-01] MEDS: GLUCOTROL 2.5 MG PO (14:27)
[2023-10-01] MEDS: LASIX 20 MG IV (14:27)
[2023-10-01] MEDS: LANTUS 0.340000000000000024 UNITS SC (14:34)
--- NOTE | 2023-10-01 15:00 | PTCARENOTE ---
pt VSS, OOB to chair. IS encouraged. pt ambulating to bathroom to void, 20mg IVP Lasix given as ordered.
[2023-10-01 15:05] LABS: Glucose - Point of Care 214 mg/dl (70-99)
[2023-10-01 16:18] LABS: Glucose - Point of Care 154 mg/dl (70-99)
[2023-10-01 16:46] LABS: Glucose - Point of Care 144 mg/dl (70-99)
[2023-10-01] MEDS: NOVOLOG FLEXPEN-MODERATE RESISTANCE SC (16:49)
[2023-10-01] MEDS: TORADOL 15 MG IV (17:34)
--- NOTE | 2023-10-01 17:46 | PTCARENOTE ---
pt ambulated in hallway, c/o L side/L shoulder pain, states worse than yesterday. SENIOR GAME DESIGNER aware. Toradol 15mg IVP ordered and given w/ decrease in pain. SENIOR GAME DESIGNER aware of CT output for day.
[2023-10-01] MEDS: LOPRESSOR 25 MG PO (19:40)
--- NOTE | 2023-10-01 20:00 | PTCARENOTE ---
Assumed care of pt from julia RN. Pt AAOx3. Following commands appropriately. OOB w/ minimal assist. SR on the monitor. HR 70s. BP 110's/60s. Palpable pulses. +1 edema in bilateral hands. Pt on 2 L NC. POX 93%. Lung sounds diminished. Left
pleural CT to -20 suction, no airleak/tidaling/crepitus at this time. Coughing and deep breathing encouraged. Abdomen soft/nontender. Denies N/V. +BS. Pt voiding in the bathroom w/o issue. PIVx2 CDI. All surgical sites stable. See worklist for full
VS, assessment, I&O, and interventions. Call mckeon within reach of pt.
[2023-10-01 22:12] LABS: Glucose - Point of Care 171 mg/dl (70-99)
[2023-10-02 00:02] VITALS: BP 101/70
[2023-10-02 00:03] VITALS: BP 101/70
--- NOTE | 2023-10-02 00:20 | PTCARENOTE ---
Previous assessment unchanged. Pt SR to sinus devi on the monitor. HR 50-60s. BP stable. Pt on 2 L NC. POX 95%. CT assessment unchanged from previous. Pt denies pain at this time. All surgical sites stable. Call mckeon within reach.
[2023-10-02 03:59] VITALS: BP 117/67
[2023-10-02 04:00] VITALS: BP 117/67
[2023-10-02 04:23] LABS: Hematocrit 35.3 % (37.0-47.0); Hemoglobin 11.5 g/dL (12.0-16.0); Mean Corp Hgb Conc. 32.6 g/dL (33.0-37.0); Mean Corpuscular Hgb 29.4 pg (27.0-31.0); Mean Corpuscular Volume 90.3 fL (81.0-99.0); Mean Platelet Volume 10.4 fL (7.4-10.4); Platelet Count 241 10^3/uL (130-400); Red Blood Cell Count 3.91 10^6/uL (4.20-5.40); Red Cell Dist. Width 14.6 % (11.5-14.5); White Blood Cell Count 20.9 10^3/uL (4.8-10.8)
--- NOTE | 2023-10-02 04:41 | PTCARENOTE ---
Previous assessment unchanged. Pt sinus devi on the monitor. HR 50s. BP stable. Remains on 2 L NC. POX 95%. CT assessment unchanged - output minimal. Pt assisted OOB to void and repositioned back into bed. Pt denies pain at this time. Labs drawn
and sent. Call mckeon within reach.
[2023-10-02 04:51] LABS: Blood Urea Nitrogen 26 mg/dl (7-17); Calcium 9.4 mg/dl (8.4-10.2); Carbon Dioxide 26 mmol/L (22-30); Chloride 101 mmol/L (98-107); Estimated Creatinine Clearance 71 ml/min; Glucose 179 mg/dl (70-99); Magnesium 2.4 mg/dl (1.6-2.3); Potassium 4.8 mmol/L (3.5-5.1); Sodium 135 mmol/L (135-145); eGFR > 60.00
--- NOTE | 2023-10-02 05:12 | W.PN.CT ---
Addendum entered and electronically signed by Joni Serna MD 10/02/23 08:29:
I saw and examined the patient.
The PA's note was reviewed and I agree with the note.
Comment:
POD#2 s/p ROBOCABG
D/C CT - CXR improved/clear
ASA, plavix, lopressor, amio, statin currently
Plan for D/C today on ASA/brilinta vs. plavix (d/w cardiology & Dr. Card), lopressor, statin
Original Note:
Today's Communication / Plan
-
-pod #2
-no issues overnight
-CT output: L pleur 35/285 in 12/24 hrs
-current meds (ASA, Plavix, Lipitor, Lopressor, Amio, Protonix). Of note, pt was on Brilinta preop after recent RCA stent 07/2023
-pain mgt APAP/gabapentin/lidocaine patch
-Restarted Januvia, glipizide, short and long acting insulin sq
-encourage IS, OOB
-Dispo planning
Assessment / Plan
-
- CAD involving prox LAD - s/p Robotic assisted MIDCAB (single-vessel bypass HEMPHILL in situ to LAD) on 09/30/[address] Card, pod #2
- Intraop ISAÍAS: LVEF preoperatively was 50 to 55%, following surgery her EF remained the same with no new regional wall motion abnormalities.
- Recent acute STEMI- status post PCI with multiple stents to the RCA
- Ischemic cardiomyopathy with LVEF 40 to 45% along with regional wall motion abnormality in the anterior apical region on nuclear stress test
- Hypertension
- Hyperlipidemia
- Previous stroke, unknown etiology
- Diabetes type 2 (HgA1c 8.8)
- Right breast cancer, status post partial mastectomy with radiation
- Prior small bowel surgery
- Acute postop blood loss anemia
- Acute postop atelectasis
- Acute postop hypovolemia with subsequent hypervolemia
Subjective
Procedure
- s/p Robotic assisted MIDCAB (single-vessel bypass HEMPHILL in situ to LAD) on 09/30/[address] Card
-
Date of Service: October 02, 2023
No overnight events. lopressor increased. CT maintained. SBP at goal.
Objective Data
-
Lab Results
10/02/23 04:10
10/02/23 04:10
PT 15.5 Sec (11.4-14.6) H 09/30/23 12:19
INR 1.25 09/30/23 12:19
APTT 27.3 Sec (23.4-35.0) 09/30/23 12:19
Vital Signs
Vital Signs
Temp Pulse Resp BP Pulse Ox
98.2 F 53 14 117/67 95
10/02/23 04:00 10/02/23 04:00 10/02/23 04:00 10/02/23 04:00 10/02/23 04:00
CT Intake/Output/Weight
10/01/23 10/01/23 10/02/23
06:59 18:59 06:59
Intake Total 467.4 / 926.9 748.8 / 748.8
Output Total 545 / 1500 1100 / 1835 735 / 1835
Balance -77.6 / -573.1 -351.2 / -1086.2 -735 / -1086.2
SaO2: 95
Physical Exam
-
General: Awake, Oriented and AOx3
Cardiovascular: Regular rate & rhythm, No Murmurs and No Rub
Respiratory: Clear and Equal
Sternum: Stable
Incision: Clean and Dressing Intact
Extremities: No Edema
Data Reviewed
-
Lab Results: Results Reviewed
Medications: Active Meds Reviewed
Chest X-Ray: Report Reviewed
ECG: Report Reviewed
[2023-10-02] MEDS: TYLENOL 1000 MG PO (06:38)
[2023-10-02 06:39] VITALS: BMI 29.2
[2023-10-02 07:16] LABS: Glucose - Point of Care 166 mg/dl (70-99)
[2023-10-02] MEDS: NOVOLOG FLEXPEN-MODERATE RESISTANCE 1 UNITS SC ×2 (07:16→11:47)
[2023-10-02 08:00] VITALS: BP 122/61
[2023-10-02 08:06] VITALS: BP 122/61
[2023-10-02] MEDS: VITAMIN C 500 MG PO (08:51)
[2023-10-02] MEDS: PACERONE 200 MG PO (08:51)
[2023-10-02] MEDS: GLUCOTROL 2.5 MG PO (08:51)
[2023-10-02] MEDS: VITAMIN D3 (cholecalciferol) 25 MCG PO (08:51)
[2023-10-02] MEDS: SENOKOT-S 1 TABLET PO (08:51)
[2023-10-02] MEDS: JANUVIA 100 MG PO (08:51)
[2023-10-02] MEDS: THERAGRAN 1 TABLET PO (08:51)
[2023-10-02] MEDS: PROTONIX 40 MG PO (08:52)
[2023-10-02] MEDS: NEURONTIN 100 MG PO (08:52)
[2023-10-02] MEDS: LOW STRENGTH ASPIRIN 81 MG PO (08:52)
[2023-10-02] MEDS: LOPRESSOR 25 MG PO (08:53)
[2023-10-02] MEDS: MAGNESIUM OXIDE 500 MG PO (08:53)
[2023-10-02] MEDS: LIPITOR 40 MG PO (08:53)
[2023-10-02] MEDS: PLAVIX 75 MG PO (08:53)
[2023-10-02] MEDS: LIDOCAINE 4% PATCH TOPICAL (08:56)
[2023-10-02] MEDS: LASIX 40 MG IV (08:56)
[2023-10-02] MEDS: BACTROBAN 2% OINTMENT 1 APPLIC NASAL (08:58)
[2023-10-02] MEDS: LANTUS 0.340000000000000024 UNITS SC (09:01)
[2023-10-02] MEDS: NSS IV (09:04)
--- NOTE | 2023-10-02 09:32 | W.PN.CD ---
Today's Communication / Plan
-
Cont post - op care
OOB and walking
d/c expected later today
Impression / Plan
-
Mrs. Palma is a 63 yo female with CAD s/p STEMI with PCI RCA 07/2023, residual LAD disease, HTN, HLD, DM, CVA 2018 and prior breast cancer, who presents for MIDCAB by Dr. Card today. Her auditing specialist is Dr. Mckeon.
CAD - residual proximal LAD s/p STEMI 07/2023 with PCI to RCA.
- s/p robotic assisted MIDCAB HEMPHILL to LAD by Dr. Card today.
- sitting in chair
- ECG shows diffuse ST elevations likely 2/2 procedure and chest tubes, minimal chest pain overall, however some at site of chest tubes
- recent STEMI and stenting of RCA,
- cont aspirin and ticag
HTN - stable BP restarting metoprolol
- monitor.
HLD - Lipitor 40mg qpm.
DM - insulin dependent.
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
CVA - 2018.
- stable.
Breast cancer - prior, right sided.
- s/p lumpectomy and XRT.
Physical Exam
Vital Signs/Labs
Vital Signs
Temp Pulse Resp BP Pulse Ox
97.9 F 70 16 122/61 96
10/02/23 08:00 10/02/23 08:51 10/02/23 08:00 10/02/23 08:51 10/02/23 08:00
10/01/23 10/02/23 10/03/23
06:59 06:59 06:59
Actual Weight 166 lb 0.129 oz 164 lb 14.492 oz
10/02/23 04:10
10/02/23 04:10
PT 15.5 Sec (11.4-14.6) H 09/30/23 12:19
INR 1.25 09/30/23 12:19
APTT 27.3 Sec (23.4-35.0) 09/30/23 12:19
Magnesium 2.4 mg/dl (1.6-2.3) H 10/02/23 04:10
Physical Exam
Constitutional: No acute distress
EENT: Anicteric
Cardiovascular: Rhythm & rate is regular and Pedal edema is absent
Respiratory: Respiratory effort normal and Lungs clear to auscul.
GI: Soft
Neuro/Psych: AO x 3
Data Reviewed
-
Date of Service: October 02, 2023
EKG: Tracing Personally Visualized and interpreted (sr)
Labs: Labs Reviewed by me
--- NOTE | 2023-10-02 10:10 | W.DCSUMMARY ---
Discharge Summary
Discharge Data
Date of Admission: 09/30/23
Date of Discharge: 10/02/23
Total time spent discharging patient (in min): 45
-
Pending Results: No
Hospital Course
Primary care physician:
Dr. Tommy Fuentes
Outpatient paper machine backtender:
Dr. Mckeon
Inpatient consultants:
CBC, regional vice president surgical sales, DM management CERTIFIED WELDER
Procedures:
1. Robotic assisted MIDCAB (single-vessel bypass HEMPHILL in situ to LAD)
Primary Diagnosis:
1. Residual coronary Artery Disease with proximal LAD involvement and status post STEMI with PCI to the RCA
Secondary Diagnoses:
1. Coronary artery disease involving the proximal LAD
2. Recent acute STEMI status post PCI with multiple stents to the RCA
3. Ischemic cardiomyopathy with LVEF 40 to 45% along with regional wall motion abnormality in the anterior apical region on nuclear stress test
4. Hypertension
5. Hyperlipidemia
6. Previous stroke, unknown etiology
7. Diabetes type 2
8. Right breast cancer, status post partial mastectomy with radiation
9. Prior small bowel surgery
HPI: 63-year-old female who recently had an acute STEMI and underwent PCI intervention to the RCA. She was found to have residual coronary artery disease involving the proximal LAD and underwent a nuclear study demonstrating anterior or lateral
and apical hypokinesis and evidence of ischemia during stress. She is status post greater than 30 days from her stenting procedure. The STS risk was discussed with the patient in the office and the shared decision making was to pursue a
single-vessel bypass using his mammary artery to his LAD via a mini invasive approach. SHe presented electively on 09/29 for a robotic MidCAB with Dr. Card.
Hospital course: Patient was electively admitted on 09/29 for a robotic assisted MIDCAB with Dr. Card. Postoperatively she was extubated in the OR and returned to the CVICU for the rest of her recovery. After extubation patient continued to be
lethargic and she was placed on BiPAP temporarily. As she began to be more awake patient was transition to nasal cannula. Postoperative chest x-ray appeared to be congested and she was diuresed with 20 mg of IV Lasix. She was initially on a
nitroglycerin drip for blood pressure control which was transition to a nicardipine infusion. Once awake enough for oral intake patient was started on oral Lopressor and aspirin. Her goal systolic pressures were initially less than 120. On 09/30
postoperative day #1, patient was continued on Lopressor and aspirin and Plavix was started. Patient continued to be hypertensive so Lopressor dose was uptitrated. Patient's insulin drip was transitioned off and she was restarted on home
medications for her diabetes management. Pleural chest tubes remain for increased serous fluid output. She was diuresed with 40 mg of IV Lasix. On 10/01 postoperative day #2, patient's pleural chest tube was discontinued. She was redosed with
40mg IV lasix. After discussion with cardiology it was decided that the patient will be discharged on Brilinta and Plavix will be discontinued.
Home medication changes:
See below
Discharge Plan
-
Patient Disposition: Home (Routine Discharge)
Discharge Diagnosis/Procedures: MIDCAB
Condition: Good
Diet: Low Cholesterol and 2 Gram Sodium
Activity: As tolerated and No strenuous activity
Driving Restrictions: Not until seen by your Dr
Bathing Restrictions: OK to Shower
Blood Work: CBC on 10/04
Other Services: Cardiac Rehab
Specialty Instructions: Weigh Daily- Call MD for wt gain/loss 3 lbs overnight/5 lbs in 1 week
Activity Restrictions/Additional Instructions:
Please call to make appointmens for Phase II Cardiac Rehab (after cleared by Surgery):
[facility]
[address] [place], [address]
[phone]
ACTIVITY:
-No strenuous activity: no heavy lifting, pushing, pulling anything over 15 pounds for one month
-continue to use stairs as tolerated
DRIVING RESTRICTIONS:
-No driving for one month or until approved by your surgeon
WOUND CARE:
-Shower daily. Use soap & water.
-No lotions, creams or powders on incision area.
DIET:
-continue a low fat/low cholesterol diet.
-IF you are diabetic, continue carb controlled diet.
CARDIAC REHAB:
-Please make appointment to start in 5-6 weeks with your local hospital program. (See Cardiac Rehabilitation Discharge Booklet).
SPECIALTY INSTRUCTIONS:
-Weigh yourself daily. Call your physician for any weight gain/loss of 3 lbs overnight or 5 lbs in one week.
-REPORT any clicking noise or uneven appearance of your sternum to your surgeon immediately.
-If you smoke, you are instructed to quit. The [place] smoking hotline phone number is [phone]
Referrals:
CT Transitional Care Nurse [Outside] (The Cardiothoracic Transitional Care Nurse will call you to set up a visit in 1-2 days.)
Tommy Fuentes, [Family Provider] -
Edin Card MD [Active] - 10/26/23 1:30 pm
Damian Mckeon MD [Active] - 11/07/23 3:40 pm
Additional Discharge Medication Instructions: Your metoprolol dose has changed.
Your losartan dose has changed. Please only take 1/2 of your home dose
Resume your brilinta tonight
Prescriptions:
New
cyclobenzaprine 10 mg Tablet
5 mg PO Q8HPRN PRN (Reason: muscle spasm) Qty: 30 0RF
acetaminophen [Tylenol Extra Strength] 500 mg Tablet
1,000 mg PO TID@0600,1400,2200 PRN (Reason: mild pain) Qty: 0 0RF
metoprolol tartrate 25 mg Tablet
25 mg PO Q12 Qty: 30 0RF
tramadol 50 mg Tablet
25 mg PO Q8HPRN PRN (Reason: severe pain) Qty: 20 0RF
gabapentin 100 mg Capsule
100 mg PO TID Qty: 30 0RF
Continued
multivitamin Tablet
1 tab PO DAILY
atorvastatin 40 mg Tablet
40 mg PO DAILY
ascorbic acid (vitamin C) [Vitamin C] 500 mg Tablet
500 mg PO DAILY
cholecalciferol (vitamin D3) [Vitamin D3] 25 mcg (1,000 unit) Tablet
25 mcg PO DAILY
Tradjenta 5 mg Tablet
5 mg PO DAILY
Brilinta 90 mg Tablet
90 mg PO BID
aspirin 81 mg Capsule
81 mg PO DAILY
glipizide 2.5 mg Tablet
2.5 mg PO DAILY
Levemir FlexPen 100 unit/mL (3 mL) Insulin Pen
34 unit SC DAILY
Changed
losartan 50 mg Tablet
25 mg PO DAILY Qty: 0 0RF
Discontinued
metoprolol tartrate 50 mg Tablet
50 mg PO BID
Curcumin Turmeric
1 tab PO DAILY
Discharge Orders:
Discharge Patient (As Directed); Ordered 10/02/23
Ordered By: Rissa Zacarias
Care Plan Goals
Care Plan Goals:
Problem: Readiness for enhanced knowledge related to diagnosis and treatment plan
Goal: Understand your diagnosis and treatment plan needs, including medications if applicable.
Instructions: Know your diagnosis, underlying causes and treatment plan options, including medications if applicable. Consult with your health care team to learn about your diagnosis and treatment plan, including medications if applicable.
Discharge Date and Time
Print Language: HEBREW
--- NOTE | 2023-10-02 11:00 | W.[place]-PDMP ---
[place]-PD[place]
-
Checked the [place]- Prescription Drug Monitoring Program website, no red flags identified; safe to proceed with prescription.
[2023-10-02 11:48] LABS: Glucose - Point of Care 191 mg/dl (70-99)
--- NOTE | 2023-10-02 12:32 | PTCARENOTE ---
Patient care assumed from nightshift RN. Patient fully alert and oriented. Left pleural chest tube removed. O2 sats maintained at 94% on room air s/p chest tube removal. Denies pain. Pt frequently using I.S and ambulating in halls. Patient showered.
PIVs x2 removed. Discharge instructions read and pt verbally agreed to understanding.
--- NOTE | 2023-10-02 13:17 | PTCARENOTE ---
discharged at 1300. brought to vehicle with family member by wheelchair with personal belongings.
== END 2023-10-02 12:00 | disposition home or self-care (01) | DRG 236 ==
LOC: CVICU 04:57
PROVIDERS: Anesthesiology; Clinical Nurse Specialist Acute Care; ADMITTING PHYSICIAN Thoracic Surgery (Cardiothoracic Vascular Surgery); FAMILY PHYSICIAN Internal Medicine; OTHER PHYSICIAN Internal Medicine Pulmonary Disease
PROC: 8E0W0CZ Robotic Assisted Procedure of Trunk Region, Open Approach (ICD-10-PCS; 2023-09-30)
PROC: 02100Z9 Bypass Coronary Artery, One Artery from Left Internal Mammary, Open Approach (ICD-10-PCS; 2023-09-30)
PROC: 5A1221Z Performance of Cardiac Output, Continuous (ICD-10-PCS; 2023-09-30)
PROC: B24BZZ4 Ultrasonography of Heart with Aorta, Transesophageal (ICD-10-PCS; 2023-09-30)
PROC: 5A09357 Assistance with Respiratory Ventilation, Less than 24 Consecutive Hours, Continuous Positive Airway Pressure (ICD-10-PCS; 2023-09-30)
DX: I25.10 Atherosclerotic heart disease of native coronary artery without angina pectoris (principal); D62 Acute posthemorrhagic anemia; J98.11 Atelectasis; I25.5 Ischemic cardiomyopathy; I10 Essential (primary) hypertension; E78.5 Hyperlipidemia, unspecified; E11.9 Type 2 diabetes mellitus without complications; E86.1 Hypovolemia; E87.70 Fluid overload, unspecified; K42.9 Umbilical hernia without obstruction or gangrene; I25.2 Old myocardial infarction; Z79.4 Long term (current) use of insulin; Z79.82 Long term (current) use of aspirin; Z79.899 Other long term (current) drug therapy; Z85.3 Personal history of malignant neoplasm of breast; Z86.73 Personal history of transient ischemic attack (TIA), and cerebral infarction without residual deficits; Z87.891 Personal history of nicotine dependence
CPT/HCPCS: 36415; 71045; 80048; 80053; 81003; 82248; 82330; 82565; 82805; 82810; 82947; 82962; 83036; 83735; 84132; 84302; 84520; 85014; 85018; 85025; 85027; 85049; 85610; 85730; 86850; 86900; 86901; 86920; 87070; 93005; 93312; 93320; 93325; 94660; J2916